=== PATIENT | female | born 1950 | race Caucasian/White ===

== ENCOUNTER 2019-11-10 13:12 | Outpatient (CLI) | payer MEDICARE, SELFPAY ==
--- NOTE | ~2019-11-10 | XR_ITS ---
XR chest 2V DATE: 11/10/2019 13:33 INDICATION: Cough, shortness of breath for 6 days TECHNIQUE: PA and lateral views COMPARISON: 10/08/2017 two-view chest FINDINGS: There is new patchy right lower lobe infiltrate since 10/08/2017. The findings suggest pneum onia. The lung jean are otherwise clear. No pleural effusion, pulmonary vascular congestion or pneumothor ax is detected. Diffuse osteopenia. IMPRESSION: Patchy right lower lobe infiltrate, suggesting pneumonia. Diagnosis includes less likely aspiration pneumonitis. Reviewed, dictated and finalized at location B.
[2019-11-10 13:25] LABS: Basophils Absolute Auto 0.06 K/mm3 (0.00-0.10); Basophils Percent Auto 0.4 % (0.0-1.0); Eosinophils Absolute Auto 0.09 K/mm3 (0.02-0.50); Eosinophils Percent Auto 0.6 % (1.0-6.0); Hemoglobin 14.3 g/dL (11.7-13.8); Immature Granulocyte Absolute 0.07 K/mm3 (0.00-0.00); Immature Granulocyte Percent A 0.5 % (0.0-0.0); Lymphocytes Absolute Auto 2.51 K/mm3 (1.10-4.50); Lymphocytes Percent Auto 16.2 % (18.0-42.0); Mean Corpuscular HGB Conc 33.3 g/dL (32.0-36.0); Mean Corpuscular Hemoglobin 28.1 pg (27.0-31.0); Mean Corpuscular Volume 84.5 fL (78.0-102.0); Mean Platelet Volume 9.7 fl (9.2-11.8); Monocytes Absolute Auto 1.61 K/mm3 (0.10-0.90); Monocytes Percent Auto 10.4 % (2.0-11.0); Neutrophils Absolute Auto 11.1 K/mm3 (1.7-7.2); Neutrophils Percent Auto 71.9 % (50.0-70.0); Platelet Count Result 259 K/mm3 (150-420); Red Blood Count 5.09 M/mm3 (4.20-5.40); Red Cell Distribution Width 13.4 % (11.6-14.4); White Blood Count 15.5 K/mm3 (4.8-10.8)
[2019-11-10 13:47] LABS: Alanine Aminotransferase 39 U/L (14-59); Albumin Level 3.4 g/dL (3.4-5.0); Alkaline Phosphatase 65 U/L (46-116); Aspartate Amino Transferase 18 U/L (15-37); Bilirubin,Total 0.7 mg/dL (0.00-1.00); Blood Urea Nitrogen 18 mg/dL (7-18); Calcium 9.5 mg/dL (8.5-10.1); Carbon Dioxide 28 mmol/L (21-32); Chloride 100 mmol/L (98-108); Estimated Glomerular Filt Rate 49; Glucose 147 mg/dL (70-99); Osmolality Calculated 284 mOsm/kg (285-295); Sodium 135 mmol/L (136-145); Total Protein 7.7 g/dL (6.4-8.2)
== END 2019-11-10 13:13 | disposition home or self-care (01) ==
LOC: CHSLAB 13:15
PROVIDERS: PCP Family Medicine; Visit Provider Family Medicine
DX: E03.9 Hypothyroidism, unspecified (principal); D58.2 Other hemoglobinopathies
CPT/HCPCS: 36415; 71046; 80053; 85025

== ENCOUNTER 2019-11-27 12:27 | Outpatient (CLI) | payer MEDICARE, SELFPAY ==
--- NOTE | ~2019-11-27 | XR_ITS ---
EXAMINATION: XR chest 2V DATE: 11/27/2019 12:57 INDICATION: Cough. Pneumonia. TECHNIQUE: Frontal and lateral views of the chest were obtained. COMPARISON: Chest 2 views 11/10/2019 FINDINGS: There are airspace opacities in right middle lobe. No pleural effusion or pneumothorax. The heart size is normal. Surgical clips in the right upper quadrant are likely from cholecystectomy. IMPRESSION: 1. Mildly worsened airspace opacities in right middle lobe, consistent with pneumonia. Reviewed, dictated and finalized at location A. IMPRESSION: 1. Mildly worsened airspace opacities in right middle lobe, consistent with pne umonia.
== END 2019-11-27 12:28 | disposition home or self-care (01) ==
LOC: CHSIMG 12:29
PROVIDERS: PCP Family Medicine; Visit Provider Family Medicine
DX: R05 Cough (principal)
CPT/HCPCS: 71046

== ENCOUNTER 2020-05-20 11:00 | Outpatient (CLI) | payer MEDICARE, SELFPAY ==
[2020-05-20 11:18] LABS: Basophils Absolute Auto 0.04 K/mm3 (0.00-0.10); Basophils Percent Auto 0.6 % (0.0-1.0); Eosinophils Absolute Auto 0.09 K/mm3 (0.02-0.50); Eosinophils Percent Auto 1.3 % (1.0-6.0); Hematocrit 41.6 % (35.0-42.0); Hemoglobin 13.6 g/dL (11.7-13.8); Immature Granulocyte Absolute 0.01 K/mm3 (0.00-0.00); Immature Granulocyte Percent A 0.1 % (0.0-0.0); Lymphocytes Absolute Auto 2.49 K/mm3 (1.10-4.50); Lymphocytes Percent Auto 35.9 % (18.0-42.0); Mean Corpuscular HGB Conc 32.7 g/dL (32.0-36.0); Mean Corpuscular Volume 85.8 fL (78.0-102.0); Mean Platelet Volume 9.8 fl (9.2-11.8); Monocytes Absolute Auto 0.39 K/mm3 (0.10-0.90); Monocytes Percent Auto 5.6 % (2.0-11.0); Neutrophils Absolute Auto 3.9 K/mm3 (1.7-7.2); Neutrophils Percent Auto 56.5 % (50.0-70.0); Platelet Count Result 234 K/mm3 (150-420); Red Blood Count 4.85 M/mm3 (4.20-5.40); White Blood Count 6.9 K/mm3 (4.8-10.8)
[2020-05-20 11:30] LABS: Hemoglobin A1C 5.7 % (<5.7)
[2020-05-20 13:21] LABS: Alanine Aminotransferase 35 U/L (14-59); Albumin Level 3.8 g/dL (3.4-5.0); Alkaline Phosphatase 71 U/L (46-116); Anion Gap 6 mmol/L (8-16); Aspartate Amino Transferase 17 U/L (15-37); Bilirubin,Total 0.3 mg/dL (0.00-1.00); Blood Urea Nitrogen 16 mg/dL (7-18); Calcium 9.1 mg/dL (8.5-10.1); Carbon Dioxide 27 mmol/L (21-32); Chloride 104 mmol/L (98-108); Cholesterol 181 mg/dL (0-200); Estimated Glomerular Filt Rate 56; Glucose 142 mg/dL (70-99); HDL Direct 77 mg/dL (40-60); LDL Cholesterol Calculated 77 mg/dL (<130); Osmolality Calculated 287 mOsm/kg (285-295); Sodium 137 mmol/L (136-145); Total Protein 7.1 g/dL (6.4-8.2); Triglycerides 133 mg/dL (0-150)
[2020-05-20 13:23] LABS: Thyroid Stimulating Hormone Reflex 0.11 u/IU/mL (0.36-3.74)
== END 2020-05-20 11:01 | disposition home or self-care (01) ==
LOC: CHSLAB 11:02
PROVIDERS: PCP Family Medicine; Visit Provider Family Medicine
DX: E03.9 Hypothyroidism, unspecified (principal); I10 Essential (primary) hypertension; R10.9 Unspecified abdominal pain; E11.59 Type 2 diabetes mellitus with other circulatory complications
CPT/HCPCS: 36415; 80053; 80061; 83036; 84439; 84443; 85025

== ENCOUNTER 2020-07-15 15:33 | Outpatient (CLI) | payer MEDICARE, SELFPAY ==
[2020-07-17 19:10] LABS: SARS-CoV-2 RNA PCR Negative
== END 2020-07-15 15:34 | disposition home or self-care (01) ==
LOC: CHSLAB 15:37
PROVIDERS: PCP Family Medicine; Visit Provider Nurse Practitioner Family
DX: Z20.828 Contact with and (suspected) exposure to other viral communicable diseases (principal)
CPT/HCPCS: 87635; C9803; U0003

== ENCOUNTER 2020-09-03 10:39 | Outpatient (CLI) | payer MEDICARE, SELFPAY ==
--- NOTE | ~2020-09-03 | US_ITS ---
US arterial ankle brachial ind INDICATION: Leg cramps and spasms. TECHNIQUE: Segmental pressures and plethysmographic and Doppler waveforms of the brachial and lower e xtremity arteries were obtained. COMPARISON: None. FINDINGS: Right and left brachial artery pressures of 121 mm Hg and 129 mm Hg, respectively, are concordant (no rmal difference <= 30 mmHg). The right ankle-brachial index (KATHY) is 1.41 (normal >= 0.9-1.0). The right great toe-brachial index (TBI) is 0.92 (normal >= 0.60). The left KATHY is 1.36. The left TBI is 0.95. IMPRESSION: 1. Normal ankle-brachial indices. Reviewed, dictated and finalized at location A. ER
--- NOTE | ~2020-09-03 | US_ITS ---
EXAMINATION:US venous doppler LE BI INDICATION:Lower extremity cramping and spasm TECHNIQUE: Multiple grayscale, color flow and Doppler images of the right and left lower extremity de ep venous systems were obtained and reviewed. COMPARISON:No prior studies for comparison. FINDINGS: The common femoral, superficial femoral and popliteal veins demonstrate normal respiratory variation, augmentation and compressibility. Color flow is also seen within the posterior tibial, pe roneal, greater saphenous and profunda veins. IMPRESSION: 1: No lower extremity deep venous thrombosis. Reviewed, dictated and finalized at location A. ER EXPLOSION
[2020-09-03 10:52] LABS: Basophils Absolute Auto 0.09 K/mm3 (0.00-0.10); Basophils Percent Auto 1.1 % (0.0-1.0); Eosinophils Absolute Auto 0.13 K/mm3 (0.02-0.50); Eosinophils Percent Auto 1.6 % (1.0-6.0); Hematocrit 43.5 % (35.0-42.0); Hemoglobin 14.4 g/dL (11.7-13.8); Immature Granulocyte Absolute 0.03 K/mm3 (0.00-0.00); Immature Granulocyte Percent A 0.4 % (0.0-0.0); Lymphocytes Absolute Auto 3.37 K/mm3 (1.10-4.50); Lymphocytes Percent Auto 40.5 % (18.0-42.0); Mean Corpuscular HGB Conc 33.1 g/dL (32.0-36.0); Mean Corpuscular Hemoglobin 27.6 pg (27.0-31.0); Mean Corpuscular Volume 83.3 fL (78.0-102.0); Mean Platelet Volume 10.1 fl (9.2-11.8); Monocytes Absolute Auto 0.59 K/mm3 (0.10-0.90); Monocytes Percent Auto 7.1 % (2.0-11.0); Neutrophils Absolute Auto 4.1 K/mm3 (1.7-7.2); Neutrophils Percent Auto 49.3 % (50.0-70.0); Platelet Count Result 278 K/mm3 (150-420); Red Blood Count 5.22 M/mm3 (4.20-5.40); Red Cell Distribution Width 13.2 % (11.6-14.4); White Blood Count 8.3 K/mm3 (4.8-10.8)
[2020-09-03 12:33] LABS: Alanine Aminotransferase 60 U/L (14-59); Albumin Level 4.3 g/dL (3.4-5.0); Alkaline Phosphatase 76 U/L (46-116); Anion Gap 11 mmol/L (8-16); Aspartate Amino Transferase 36 U/L (15-37); Bilirubin,Total 0.5 mg/dL (0.00-1.00); Blood Urea Nitrogen 18 mg/dL (7-18); Calcium 9.7 mg/dL (8.5-10.1); Carbon Dioxide 27 mmol/L (21-32); Chloride 101 mmol/L (98-108); Estimated Glomerular Filt Rate 53; Glucose 97 mg/dL (70-99); Osmolality Calculated 289 mOsm/kg (285-295); Potassium 4.7 mmol/L (3.5-5.1); Sodium 139 mmol/L (136-145)
[2020-09-03 12:34] LABS: Thyroid Stimulating Hormone Reflex 1.71 u/IU/mL (0.36-3.74)
== END 2020-09-03 10:40 | disposition home or self-care (01) ==
PROVIDERS: PCP Family Medicine; Visit Provider Family Medicine
DX: E03.9 Hypothyroidism, unspecified (principal); R25.2 Cramp and spasm; M79.661 Pain in right lower leg; M79.662 Pain in left lower leg; M79.89 Other specified soft tissue disorders
CPT/HCPCS: 36415; 80053; 84443; 85025; 93922; 93970

== ENCOUNTER 2020-11-12 12:13 | Outpatient (CLI) | payer MEDICARE, SELFPAY ==
--- NOTE | ~2020-11-12 | US_ITS ---
EXAMINATION: US venous doppler LE EXAM DATE: 11/12/2020 12:47 INDICATION: M79.661 - Pain in right lower leg lower leg pain. Lt knee swelling. TECHNIQUE: Multiple grayscale, color flow and Doppler images of the lower extremity deep venous syste ms bilaterally were obtained and reviewed. Comparison is made to prior examination from 09/03/2020. FINDINGS: Right side: The right common femoral, femoral and profunda veins demonstrate normal color flow, respi ratory variation, augmentation and compressibility. Compressibility, color flow confirmed within the right popliteal, posterior tibial, peroneal, and greater saphenous veins. Left side: The left common femoral, femoral and profunda veins demonstrate normal color flow, respira tory variation, augmentation and compressibility. Compressibility, color flow confirmed within the l eft popliteal, posterior tibial, peroneal, and greater saphenous veins. IMPRESSION: 1. No lower extremity deep venous thrombosis bilaterally. Reviewed, dictated and finalized at location A.
== END 2020-11-12 12:14 | disposition home or self-care (01) ==
PROVIDERS: PCP Family Medicine; Visit Provider Family Medicine
DX: M79.661 Pain in right lower leg (principal); M79.662 Pain in left lower leg
CPT/HCPCS: 93970

== ENCOUNTER 2020-11-19 15:04 | Outpatient (NON) | payer MEDICARE, SELFPAY | END 2020-11-19 15:05 | LOC: CHSLAB 15:06 | PROVIDERS: PCP Family Medicine; Visit Provider Nurse Practitioner Family | DX: N39.0 Urinary tract infection, site not specified (principal) | CPT/HCPCS: 87086; 87088 ==

== ENCOUNTER 2021-06-29 16:16 | Outpatient (CLI) | payer MEDICARE, SELFPAY ==
[2021-06-29 18:09] LABS: Thyroid Stimulating Hormone Reflex 0.38 u/IU/mL (0.36-3.74)
== END 2021-06-29 16:17 | disposition home or self-care (01) ==
LOC: CHSLAB 16:17
PROVIDERS: PCP Family Medicine; Visit Provider Family Medicine
DX: E03.9 Hypothyroidism, unspecified (principal); E11.9 Type 2 diabetes mellitus without complications
CPT/HCPCS: 36415; 83036; 84443

== ENCOUNTER 2021-10-04 09:54 | Outpatient (CLI) | payer MEDICARE, SELFPAY ==
[2021-10-04 10:23] LABS: Basophils Absolute Auto 0.07 K/mm3 (0.00-0.10); Basophils Percent Auto 0.9 % (0.0-1.0); Eosinophils Absolute Auto 0.11 K/mm3 (0.02-0.50); Eosinophils Percent Auto 1.5 % (1.0-6.0); Hematocrit 44.7 % (35.0-42.0); Hemoglobin 14.8 g/dL (11.7-13.8); Immature Granulocyte Absolute 0.03 K/mm3 (0.00-0.00); Immature Granulocyte Percent A 0.4 % (0.0-0.0); Lymphocytes Absolute Auto 2.61 K/mm3 (1.10-4.50); Lymphocytes Percent Auto 34.9 % (18.0-42.0); Mean Corpuscular HGB Conc 33.1 g/dL (32.0-36.0); Mean Corpuscular Hemoglobin 27.6 pg (27.0-31.0); Mean Corpuscular Volume 83.2 fL (78.0-102.0); Mean Platelet Volume 10.4 fl (9.2-11.8); Monocytes Percent Auto 6.7 % (2.0-11.0); Neutrophils Absolute Auto 4.2 K/mm3 (1.7-7.2); Neutrophils Percent Auto 55.6 % (50.0-70.0); Platelet Count Result 268 K/mm3 (150-420); Red Blood Count 5.37 M/mm3 (4.20-5.40); Red Cell Distribution Width 13.9 % (11.6-14.4); White Blood Count 7.5 K/mm3 (4.8-10.8)
[2021-10-04 10:48] LABS: Hemoglobin A1C 6.2 % (<5.7)
[2021-10-04 10:58] LABS: Alanine Aminotransferase 29 U/L (14-59); Albumin Level 3.8 g/dL (3.4-5.0); Alkaline Phosphatase 87 U/L (46-116); Anion Gap 11 mmol/L (8-16); Aspartate Amino Transferase 19 U/L (15-37); Bilirubin,Total 0.4 mg/dL (0.00-1.00); Blood Urea Nitrogen 22 mg/dL (7-18); Carbon Dioxide 26 mmol/L (21-32); Chloride 101 mmol/L (98-108); Cholesterol 213 mg/dL (0-200); Estimated Glomerular Filt Rate > 60; Glucose 111 mg/dL (70-99); HDL Direct 75 mg/dL (40-60); LDL Cholesterol Calculated 118 mg/dL (<130); Osmolality Calculated 290 mOsm/kg (285-295); Potassium 4.2 mmol/L (3.5-5.1); Sodium 138 mmol/L (136-145); Total Protein 7.5 g/dL (6.4-8.2); Triglycerides 99 mg/dL (0-150)
== END 2021-10-04 09:55 | disposition home or self-care (01) ==
LOC: CHSLAB 09:58
PROVIDERS: PCP Family Medicine; Visit Provider Family Medicine
DX: E11.9 Type 2 diabetes mellitus without complications (principal); E03.9 Hypothyroidism, unspecified; K21.9 Gastro-esophageal reflux disease without esophagitis; E78.2 Mixed hyperlipidemia; R03.0 Elevated blood-pressure reading, without diagnosis of hypertension; E66.9 Obesity, unspecified; E55.9 Vitamin D deficiency, unspecified
CPT/HCPCS: 36415; 80053; 80061; 83036; 84443; 85025

== ENCOUNTER 2024-11-17 10:56 | Outpatient (RCR) | payer MEDICARE, SELFPAY ==
--- NOTE | 2024-11-17 11:53 | PTOPEVAL1 ---
Assessment and note entered by Jhoan Salter Evaluation Information Assessment Status Evaluation Diagnosis s/p arthroscopy right shoulder Onset 11/11/24 Subjective Information Pt. underwent shoulder surgery on 11/11/24. She reports since surgery she has not been exercising. She was given a HEP following surgery. She states that her assist with dressing, grooming and bathing. She reports that before surgery she was independent with all IADL's. She states that her goal for therapy is to be able to use the right arm without limitation. She is right hand dominant. Reported Pain Level Pain Score 8: Self Report Assessment PT Clinical Summary Pt. is a 74 year old female who enters the clinic 1 week post right shoulder arthroscopy. Pt. describes a rotator cuff repair, however protocol provided on this date describes labral repair. She currently presents with impaired strength, impaired right shoulder ROM and functional decline . Continued skilled PT is indicated in order to improve these areas to allow the pt. to complete all IADL's without assistance. Plan of Care Interventions Electrical Stimulation,Hot Pack/Cold Pack,Manual Therapy,Neuro Re-education,Patient/Caregiver Education,Therapeutic Activities,Therapeutic Exercise PT Services Indicated Yes Treatment Frequency and 2x/week x 10 visits Duration These treatments will address the objective and functional deficits as defined above. The patient will be advanced safely and appropriately in order for the patient to progress towards his/her prior level of function. Additional exercises will be introduced and as well as a comprehensive home exercise program upon discharge, if needed, ?to ensure carryover of functional gains achieved in the clinic. This treatment plan has been reviewed and agreement upon by the patient.
--- NOTE | 2024-12-17 14:12 | OPREHPOC ---
Outpatient Therapy Plan of Care This is a Multidisciplinary Plan of Care that may contain components documented by all disciplines (PT, OT, and ST.) PT Problem 1 PT Problem #1 Knowledge Deficit PT Goal 1 Goal / Goal Update Pt. will be independent with a HEP focusing on mobility and pain control. Target Visit 2 Progress Met PT Problem 2 PT Problem #2 Impaired Range of Motion PT Goal 1 Goal / Goal Update Pt. will be appropriate to progress to active right shoulder movement. Pt. will demonstrate 140 degrees active right shoulder flexion against gravity Pt. will be able to wash her hair and dress without assistance. Target Visit 10 Progress Not Met PT Problem 3 PT Problem #3 Impaired Strength PT Goal 1 Goal / Goal Update Pt. will demonstrate 3+/5 gross right shoulder strength. Target Visit 10 Progress Not Met
--- NOTE | 2024-12-17 14:12 | PTOPPROG ---
Assessment and note entered by Rose Mary Tapia, PT Evaluation Information Assessment Status Progress Diagnosis s/p arthroscopy right shoulder ICD-10 Condition Codes (PT) Pain in right shoulder M25.511 Onset 11/11/24 Subjective Information Cassandra reports she has been performing her HEP but experiences difficulty with cane flexion. She is now 5 weeks post-op and continues to report pain as high as 7/10. She uses her TENS unit at home and heat pack primarily at therapy. She is able to wash her hair using her L arm but still needs assistance from her to dry after showering . Her is still assisting with cooking and carrying items. Assessment PT Clinical Summary Mrs. Davis has attended 10 total skilled PT visits following R shoulder arthroscopy 5 weeks ago. She is still in the passive ROM phase of her protocol and is making gradual progress in her ROM . She will continue to benefit from skilled PT services to continue progressing toward goals per surgical protocol. Plan of Care Interventions Electrical Stimulation,Hot Pack/Cold Pack,Manual Therapy,Neuro Re-education,Patient/Caregiver Education,Therapeutic Activities,Therapeutic Exercise,Self-Care/Home Management PT Services Indicated Yes Treatment Frequency and 2x/week for 10 additional visits Duration These treatments will address the objective and functional deficits as defined above. The patient will be advanced safely and appropriately in order for the patient to progress towards his/her prior level of function. Additional exercises will be introduced and as well as a comprehensive home exercise program upon discharge, if needed, ?to ensure carryover of functional gains achieved in the clinic. This treatment plan has been reviewed and agreement upon by the patient.
--- NOTE | 2025-01-23 10:08 | OPREHPOC ---
Outpatient Therapy Plan of Care This is a Multidisciplinary Plan of Care that may contain components documented by all disciplines (PT, OT, and ST.) PT Problem 1 PT Problem #1 Knowledge Deficit PT Goal 1 Goal / Goal Update Pt. will be independent with a HEP focusing on mobility and pain control. Target Visit 2 Progress Met PT Problem 2 PT Problem #2 Impaired Range of Motion PT Goal 1 Goal / Goal Update Pt. will be appropriate to progress to active right shoulder movement. -met Pt. will demonstrate 140 degrees active right shoulder flexion against gravity -met Pt. will be able to wash her hair and dress without assistance. -met Target Visit 10 Progress Met PT Goal 2 Goal / Goal Update Pt to achieve full active flexion and abduction ROM Pt to reach functional IR to T10 Pt to reach functional ER to T2 Target Visit 28 PT Problem 3 PT Problem #3 Impaired Strength PT Goal 1 Goal / Goal Update Pt. will demonstrate 3+/5 gross right shoulder strength. Target Visit 10 Progress Not Met PT Goal 2 Goal / Goal Update Pt to improve R shoulder flexion, ER and IR strength to 5/5. Pt to improve R shoulder abduction strength to 4/5 . Target Visit 28
--- NOTE | 2025-01-23 10:08 | PTOPPROG ---
Assessment and note entered by Rose Mary Tapia, PT Evaluation Information Assessment Status Progress Diagnosis s/p arthroscopy right shoulder ICD-10 Condition Codes (PT) Pain in right shoulder M25.511 Onset 11/11/24 Subjective Information Cassandra reports her shoulder has been feeling good. She reports in the morning her pain is around a 6/ 10 but it quickly subsides to no pain. She's now able to wash her hair, cook, clean, and quilt without assistance from her . She still has difficulty with reaching behind her back and still feels like she has some weakness in her shoulder. She recently tried to lift a vase of warner and was unable to due to the weight. She also does still have difficulty cutting fabric when quilting but overall is satisfied with her progress thus far. Assessment PT Clinical Summary Mrs. Davis has attended 20 total skilled PT visits following R RCR and biceps tenodesis on . Since beginning therapy she has reached near full PROM and has made good improvements in her R shoulder AROM as well. She has also returned to dressing, cooking and washing her hair without assistance. She still demonstrates limitations in active IR of the R shoulder as well as moderate strength deficits most notably in abduction and ER . She also still experiences difficulty with cutting fabric when quilting. She will benefit from continued skilled PT per protocol to improve strength and allow her to return to full participation in daily functional and recreational tasks. Plan of Care Interventions Electrical Stimulation,Hot Pack/Cold Pack,Manual Therapy,Neuro Re-education,Patient/Caregiver Education,Therapeutic Activities,Therapeutic Exercise,Self-Care/Home Management PT Services Indicated Yes Treatment Frequency and 2x/week for 8 additional visits Duration These treatments will address the objective and functional deficits as defined above. The patient will be advanced safely and appropriately in order for the patient to progress towards his/her prior level of function. Additional exercises will be introduced and as well as a comprehensive home exercise program upon discharge, if needed, ?to ensure carryover of functional gains achieved in the clinic. This treatment plan has been reviewed and agreement upon by the patient.
== END 2025-02-15 23:59 | disposition home or self-care (01) ==
LOC: CHSPT 10:56
PROVIDERS: Visit Provider Orthopaedic Surgery
DX: Z98.890 Other specified postprocedural states (principal)
CPT/HCPCS: 97014; 97110; 97112; 97140; 97150; 97161; 97530; G0283